=== PATIENT | female | born 1975 | race Caucasian/White ===

== ENCOUNTER 2016-09-20 09:23 | Day surgery (SDC) | payer OTHER ==
[~2016-09-20] VITALS: Ht 167.6 cm; Wt 102.0 kg
[~2016-09-20 09:23] MED LIST: DULCOLAX10 MG PR; ENDOCET 5-3251 EACH PO; FEOSOL325 MG PO; FLUOXETINE HCL20 MG PO; IBUPROFEN800 MG PO; PRENATAL TABLE1 EAC3 PO; PROZAC40 MG PO; VALIUM5 MG PO; ZANTAC150 MG PO; ZOFRAN8 MG PO
[2016-09-20 11:13] VITALS: BP 127/71
[2016-09-20] MEDS ORDERED: NORCO 5/3251 TABLET PO (13:15)
[2016-09-20 14:38] VITALS: BP 112/69
[2016-09-20 15:51] VITALS: BP 120/68
== END 2016-09-20 16:10 | disposition home or self-care (01) ==
LOC: SDC 09:23 → 2SOUTH 12:36 → EDSTATUS 12:36 → SDC 12:37
PROC: 0FT44ZZ Resection of Gallbladder, Percutaneous Endoscopic Approach (ICD-10-PCS; principal; 2016-09-20)
DX: K80.10 Calculus of gallbladder with chronic cholecystitis without obstruction (principal); K21.9 Gastro-esophageal reflux disease without esophagitis
CPT/HCPCS: 83690; 88304; J0330; J1100; J1170; J1885; J2250; J2405; J2710; J3010

== ENCOUNTER 2018-04-18 18:27 | Emergency (ER) | payer OTHER ==
[~2018-04-18] VITALS: Ht 167.6 cm; Wt 110.3 kg
[~2018-04-18 18:27] MED LIST changes: +NORCO 5/3251 TABLET PO
[2018-04-18 21:41] VITALS: BP 139/93
== END 2018-04-18 21:41 | disposition home or self-care (01) ==
LOC: EXP 18:27 → EME 18:27 → EXP 21:41
DX: S16.1XXA Strain of muscle, fascia and tendon at neck level, initial encounter (principal); V49.40XA Driver injured in collision with unspecified motor vehicles in traffic accident, initial encounter; Y92.410 Unspecified street and highway as the place of occurrence of the external cause; K21.9 Gastro-esophageal reflux disease without esophagitis; Z88.5 Allergy status to narcotic agent
CPT/HCPCS: 72125; 99281; 99283